=== PATIENT | male | born 1975 ===

== ENCOUNTER 2016-10-10 15:07 | Emergency (ER) | payer BC ==
[2016-10-10 15:17] VITALS: BP 135/79; PULSE 60; RESP 19; TEMP 96.2; O2SAT 99
[2016-10-10] MEDS ORDERED: Sodium Chloride 0.9% 1,000 ML IV STA (15:27)
--- NOTE | 2016-10-10 15:38 | ED PDOC ---
HPI: Back Time Seen by Provider: 10/10/16 15:20 Chief Complaint (Nursing): Back Pain Chief Complaint (Provider): Left-sided back pain History Per: Patient History/Exam Limitations: no limitations Onset/Duration Of Symptoms: Worse Since (this morning) Current Symptoms Are (Timing): Still Present Additional Complaint(s): Erick is a 41 y/o male with a past medical history of chronic low back pain who presents to the ED complaining of back pain and nausea. Taking Motrin intermittently the past few days. States this morning his pain became worse, especially to the left side, and he became nauseous. Denies any associated vomiting, fever, chills, or hematuria. Admits he has some burning on urination. PMD: Unknown Past Medical History Reviewed: Historical Data, Nursing Documentation, Vital Signs Vital Signs: Last Vital Signs Temp 96.2 F L 10/10/16 15:13 Pulse 60 10/10/16 15:13 Resp 19 10/10/16 15:13 BP 135/79 10/10/16 15:13 Pulse Ox 99 10/10/16 15:13 - Medical History PMH: Chronic Pain (back) - Surgical History Surgical History: Appendectomy - Family History Family History: States: Unknown Family Hx - Social History Current smoker - smoking cessation education provided: No Alcohol: None Drugs: Denies - Home Medications Home Medications: Ambulatory Orders Medication Instructions Recorded Naproxen [Naprosyn] 500 mg PO BID PRN #20 tablet 10/10/16 Sulfamethoxazole/Trimethoprim 1 tab PO BID #14 tab 10/10/16 [Bactrim DS 800 mg-160 mg] Tamsulosin [Flomax] 0.4 mg PO DAILY #21 cap 10/10/16 - Allergies Allergies/Adverse Reactions: Allergies Allergy/AdvReac Type Severity Reaction Status Date / Time No Known Allergies Allergy Verified 10/10/16 15:18 Review of Systems ROS Statement: Except As Marked, All Systems Reviewed And Found Negative Constitutional: Negative for: Fever, Chills Gastrointestinal: Positive for: Nausea. Negative for: Vomiting Genitourinary Male: Positive for: Dysuria (some burning on urination). Negative for: Hematuria Musculoskeletal: Positive for: Back Pain (Left-sided, radiates to left abdomen) Physical Exam - Reviewed Nursing Documentation Reviewed: Yes Vital Signs Reviewed: Yes - Physical Exam Appears: Positive for: Non-toxic, Uncomfortable (moderate discomfort, lying on his right side in semi- position) Head Exam: Positive for: ATRAUMATIC, NORMAL INSPECTION, NORMOCEPHALIC Skin: Positive for: Normal Color, Warm, Dry Eye Exam: Positive for: EOMI, Normal appearance, PERRL ENT: Positive for: Other (Dry mucus membranes) Neck: Positive for: Normal, Painless ROM, Supple Cardiovascular/Chest: Positive for: Regular Rate, Rhythm. Negative for: Murmur Respiratory: Positive for: Normal Breath Sounds (Lungs clear to auscultation). Negative for: Respiratory Distress Gastrointestinal/Abdominal: Positive for: Soft, Tenderness (LLQ tenderness) Back: Positive for: L CVA Tenderness (Significant) Extremity: Positive for: Normal ROM, Capillary Refill (< 2 sec). Negative for: Deformity Neurologic/Psych: Positive for: Alert, Oriented. Negative for: Motor/Sensory Deficits - Laboratory Results Result Diagrams: 10/10/16 15:58 10/10/16 15:58 - ECG O2 Sat by Pulse Oximetry: 99 (RA) Pulse Ox Interpretation: Normal Medical Decision Making Medical Decision Making: Time: 15:27 Initial Impression: UTI, pyelonephritis vs. kidney stone Initial Plan: --BMP --Lipase --CBC --Urine dip --Urinalysis --NS IV 1000 ml at 1000 mls/hr --Toradol 30 mg IV --Pepcid 20 mg IV --Zofran 4 mg IV --CT Abdomen w/o contrast --Pending reevaluation and disposition Time: 16:43 CT Abdomen/Pelvis w/o contrast FINDINGS: LOWER THORAX: The lung bases are clear. LIVER: The liver is normal in size. No gross lesion or ductal dilatation. GALLBLADDER AND BILE DUCTS: There are no calcified gallstones. PANCREAS: The pancreas is normal in size. No gross lesion or ductal dilatation. SPLEEN: The spleen is normal in size. ADRENALS: Both adrenal glands are normal in size without discrete nodule. KIDNEYS AND URETERS: Both kidneys are normal in size and there are multiple small nonobstructing stones in both kidneys, the largest in the right lower pole measures 3 mm there is a 3 mm stone in the left distal ureter just proximal to the UV junction with resultant mild diffuse dilatation of the left ureter, mild left hydronephrosis, edema and enlargement in the left kidney and perinephric fat stranding. There is a 2.4 cm simple cyst in the interpolar region of the left kidney P. VASCULATURE: No aortic aneurysm. BOWEL: The small bowel loops are normal in caliber. There is moderate amount of stool in the ascending and transverse colon. There is no bowel dilatation or obstruction. APPENDIX: No inflammatory changes in the right lower quadrant. The appendix is discs is not distinctly visualized. PERITONEUM: No free fluid. No free air. LYMPH NODES: Go No enlarged lymph nodes. BLADDER: There is apparent mild mural thickening of the urinary bladder wall. REPRODUCTIVE: The prostate gland is normal in size. BONES: No acute fracture. OTHER FINDINGS: None. IMPRESSION: 1. 3 mm stone in the left distal ureter just proximal to the UV junction, mild diffuse dilatation of the left ureteral, mild hydronephrosis, edema and enlargement of the left kidney and perinephric inflammatory changes. 3. Multiple small nonobstructing stones in both kidneys, the largest in the right lower pole measures 3 mm. Time: 17:10 --Given Reglan 10 mg IV Scribe Attestation: Documented by Emma Raphael, acting as a scribe for Carmita Cabrera MD Provider Scribe Attestation: All medical record entries made by the Scribe were at my direction and personally dictated by me. I have reviewed the chart and agree that the record accurately reflects my personal performance of the history, physical exam, medical decision making, and the department course for this patient. I have also personally directed, reviewed, and agree with the discharge instructions and disposition. Disposition - Clinical Impression Clinical Impression: Ureteral colic - Patient ED Disposition Is Patient to be Admitted: No Doctor Will See Patient In The: Office Counseled Patient/Family Regarding: Diagnosis, Need For Followup, Rx Given - Disposition Referrals: Chaitanya Lozano MD [Staff Provider] - Disposition: Routine/Home Disposition Time: 17:30 Condition: IMPROVED Prescriptions: Naproxen [Naprosyn] 500 mg PO BID PRN #20 tablet PRN Reason: Pain, Moderate (4-7) Sulfamethoxazole/Trimethoprim [Bactrim DS 800 mg-160 mg] 1 tab PO BID #14 tab Tamsulosin [Flomax] 0.4 mg PO DAILY #21 cap Instructions: Renal Colic (ED) Forms: [facility] (Albanian) Print Language: AZERI - POA Present On Arrival: None
[2016-10-10 16:08] LABS: BASO # 0.1 K/uL (0.0-0.2); BASO % 0.4 % (0.0-2.0); EOS # 0.1 K/uL (0.0-0.7); EOS % 1.1 % (0.0-4.0); HEMATOCRIT 44.5 % (35.0-51.0); LYMPH # 2.7 K/uL (1.0-4.3); LYMPH % 22.6 % (20.0-40.0); MEAN CELL VOLUME 90.4 fl (80.0-94.0); MEAN CORPUSCULAR HEMOGLOBIN 30.6 pg (27.0-31.0); MEAN CORPUSCULAR HGB CONC 33.9 g/dL (33.0-37.0); MEAN PLATELET VOLUME 7.9 fl (7.2-11.7); MONO # 0.6 K/uL (0.0-0.8); NEUT # 8.4 K/uL (1.8-7.0); NEUT % 70.9 % (50.0-75.0); NRBC % 0.1 % (0.0-0.0); RED CELL DISTRIBUTION WIDTH 13.5 % (11.5-14.5); WHITE BLOOD COUNT 11.9 K/uL (4.8-10.8)
[2016-10-10 16:13] LABS: BLOOD UREA NITROGEN 17 mg/dl (9-20); CALCIUM 10.2 mg/dL (8.4-10.2); CARBON DIOXIDE 25 mmol/L (22-30); CHLORIDE 102 mmol/L (98-107); GFR AFRICAN-AMERICAN > 60; GLUCOSE,RANDOM 148 mg/dL (75-110); LIPASE 57 U/L (23-300); POTASSIUM 3.4 MMOL/L (3.6-5.0); SODIUM 142 mmol/l (132-148)
[2016-10-10 16:45] LABS: RBC URINE 13 /hpf (0-3); URINE BILIRUBIN NEGATIVE (NEGATIVE); URINE BLOOD MODERATE (NEGATIVE); URINE COLOR YELLOW (YELLOW); URINE GLUCOSE (UA) NEG (Normal); URINE KETONE 20 mg/dL (NEGATIVE); URINE LEUKOCYTE ESTERASE SMALL Leu/uL (Negative); URINE PROTEIN NEGATIVE (NEGATIVE); URINE UROBILINOGEN 0.2-1.0 mg/dL (0.2-1.0); WBC URINE 1 /hpf (0-5)
--- NOTE | 2016-10-10 16:45 | CT ---
PROCEDURE: CT Abdomen and Pelvis without intravenous contrast HISTORY: acute left flank pain COMPARISON: None. TECHNIQUE: CT scan of the abdomen and pelvis was performed without administration of oral intravenous contrast. Oral contrast was not administered. Coronal and sagittal reformatted images were obtained. Radiation dose: Total exam DLP = 728.10 mGy-cm. This CT exam was performed using one or more of the following dose reduction techniques: Automated exposure control, adjustment of the mA and/or kV according to patient size, and/or use of iterative reconstruction technique. FINDINGS: LOWER THORAX: The lung bases are clear. LIVER: The liver is normal in size. No gross lesion or ductal dilatation. GALLBLADDER AND BILE DUCTS: There are no calcified gallstones. PANCREAS: The pancreas is normal in size. No gross lesion or ductal dilatation. SPLEEN: The spleen is normal in size. ADRENALS: Both adrenal glands are normal in size without discrete nodule. KIDNEYS AND URETERS: Both kidneys are normal in size and there are multiple small nonobstructing stones in both kidneys, the largest in the right lower pole measures 3 mm there is a 3 mm stone in the left distal ureter just proximal to the UV junction with resultant mild diffuse dilatation of the left ureter, mild left hydronephrosis, edema and enlargement in the left kidney and perinephric fat stranding. There is a 2.4 cm simple cyst in the interpolar region of the left kidney P. VASCULATURE: No aortic aneurysm. BOWEL: The small bowel loops are normal in caliber. There is moderate amount of stool in the ascending and transverse colon. There is no bowel dilatation or obstruction. APPENDIX: No inflammatory changes in the right lower quadrant. The appendix is discs is not distinctly visualized. PERITONEUM: No free fluid. No free air. LYMPH NODES: Go No enlarged lymph nodes. BLADDER: There is apparent mild mural thickening of the urinary bladder wall. REPRODUCTIVE: The prostate gland is normal in size. BONES: No acute fracture. OTHER FINDINGS: None. IMPRESSION: 1. 3 mm stone in the left distal ureter just proximal to the UV junction, mild diffuse dilatation of the left ureteral, mild hydronephrosis, edema and enlargement of the left kidney and perinephric inflammatory changes. 3. Multiple small nonobstructing stones in both kidneys, the largest in the right lower pole measures 3 mm.
[2016-10-10] MEDS ORDERED: Tmp-Smz 800 mg-160 mg DS Tab PO STA (17:35)
[2016-10-10] MEDS ORDERED: Tmp-Smz 800 mg-160 mg DS Tab ONE (18:09)
== END 2016-10-10 18:20 | disposition home or self-care (01) ==
LOC: H.ER 15:07
DX: N23 Unspecified renal colic (principal)
CPT/HCPCS: 74176; 80048; 81003; 83690; 85025; 96361; 96374; 96375; 99284; J1885; J2270; J2405; J2765; J7040